=== PATIENT | male | born 1995 | race Caucasian/White ===

== ENCOUNTER 2021-07-20 03:09 | Outpatient (CLI) | payer SELFPAY ==
[2021-07-20 17:22] LABS: ALT 33 U/L (16-63); AST 31 U/L (15-37); GGT 32 U/L (15-85)
== END 2021-07-20 03:10 | disposition home or self-care (01) ==
PROVIDERS: Visit Provider Nurse Practitioner Gerontology
DX: F11.20 Opioid dependence, uncomplicated (principal)
CPT/HCPCS: 36415; 82977; 84450; 84460

== ENCOUNTER 2021-08-06 13:48 | Emergency (ER) | payer MEDICAID, SELFPAY ==
[2021-08-06 13:54] VITALS: BP 121/65; PULSE 67; RESP 16; TEMP 36.5; O2SAT 100
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
--- NOTE | 2021-08-06 14:20 | DI.RAD_ITS ---
Exam(s) XR LUMBAR SPINE AP, LAT EXAM: XR LUMBAR SPINE AP, LAT CLINICAL HISTORY: Low back pain to right TECHNIQUE: COMPARISON: No exams were available for comparison FINDINGS: Three views were obtained. There is a mild biconvex thoracolumbar scoliosis. The SI joints show no specific abnormality. There is narrowing of the intervertebral disc space at L3-4 and also at L5-S1. No bony abnormality seen, no fracture, no evidence of spondylolysis or spondylolisthesis. IMPRESSION: Loss of disc space height at L3-4 and L5-S1, this finding is typically associated with disc degenerat ion. No other specific findings. RADIATION DOSE DELIVERED: Total DLP
[2021-08-06] MEDS: Ketorolac 10 MG TAB PO (15:14)
[2021-08-06] MEDS: predniSONE 20 MG TAB 60 MG PO (15:14)
[2021-08-06] MEDS: Lidocaine 5% Patch 1 PATCH TP (15:15)
== END 2021-08-06 15:23 | disposition home or self-care (01) ==
PROVIDERS: Emergency Provider Emergency Medicine
DX: M54.41 Lumbago with sciatica, right side (principal)
CPT/HCPCS: 99283; 72100; J7512